=== PATIENT | female | born 1995 | race Caucasian/White ===

== ENCOUNTER 2025-04-23 20:21 | Emergency (ER) | payer BC ==
[2025-04-23 21:27] LABS: Absolute Lymphocytes (CBC) 3.3 K/uL (0.7-4.9); Hematocrit 40.1 % (36.0-45.0); Hemoglobin 13.9 g/dL (12.0-15.0); MCH 31.8 pg (27.0-35.0); MCHC 34.8 g/dL (32.0-36.0); MCV 91.4 fL (80-100); MPV 7.3 fL (7.6-11.3); Nucleated RBC Absolute Count 0.0 (0-0); Nucleated Red Blood Cells % 0.0 % (0-0); RBC Red Blood Cell Count 4.38 M/uL (3.86-4.86); White Blood Count 8.70 thou/uL (4.3-10.9)
[2025-04-23 21:34] LABS: Sqamous Epithelial <5 /HPF (None Seen); Urine Culture Reflex Order NOT NEEDED; Urine Microscopic Reflex YN ORDER UMIC
[2025-04-23 21:45] LABS: ALT/SGPT 33.0 U/L (13-56); AST/SGOT 18.0 U/L (15-37); Albumin 3.7 g/dL (3.4-5.0); Albumin/Globulin Ratio 0.9 (1.1-1.8); Alkaline Phosphatase 82.0 U/L (45-117); Anion Gap 9.0 mEq/L (5.0-15.0); BUN Blood Urea Nitrogen 16.0 mg/dL (7-18); Globulin 3.9 g/dL (2.3-3.5); Glucose Level 124.0 mg/dL (74-106); Lipase 44.0 U/L (13-75); Potassium 4.0 mEq/L (3.5-5.1)
--- NOTE | 2025-04-23 22:45 | RAD REPORT ---
EXAMINATION: CT Abdomen Pelvis W Contrast CLINICAL INDICATION: Female, 29 years old. ABD PAIN TECHNIQUE: CT abdomen and pelvis was performed, after the administration of IV contrast, as per [facility] protocol. Axial, sagittal and coronal reconstructions were obtained. One or more of the following dose reduction techniques were used: Automated exposure control, adjustment of the mA and k V according to patient size, and iterative reconstruction. Unless otherwise specified, incidental findings do not require dedicated imaging follow-up. COMPARISON: No prior exam. FINDINGS: LOWER CHEST: The visualized lung bases are clear. LIVER: Normal in size and contour. No focal lesion. BILIARY SYSTEM: No suspicious abnormalities. SPLEEN: Normal size. No focal lesion. PANCREAS: No mass, ductal dilation, or roberto-pancreatic fluid. ADRENALS: Normal; no mass. KIDNEYS: Normal size and contour. No hydronephrosis. URINARY BLADDER: Suboptimally distended limiting evaluation, without suspicious abnormalities. GASTROINTESTINAL TRACT: Stomach is moderately distended. No evidence of free air, significant intra-a bdominal free fluid, bowel obstruction or abscess. APPENDIX: Normal appendix. LYMPH NODES: No lymphadenopathy. MUSCULOSKELETAL: No acute or suspicious osseous abnormality. ADDITIONAL FINDINGS: retroverted uterus. IMPRESSION: No acute or concerning abnormalities seen in the abdomen or pelvis. Incidental findings as above.
--- NOTE | 2025-04-23 22:55 | ER ---
Nurse's Notes [facility] Name: Maye Arshad Age: 29 yrs Sex: Female : 1995 Arrival Date: 04/23/2025 Time: 20:21 Bed 5 Private MD: Diagnosis: Abdominal pain, unspecified Presentation: 04/23 20:38 Chief complaint: Patient states: LLQ pain that started Friday night, "8/10", me1 stabbing/burning with intermittent diarrhea. Was seen at urgent care on Friday and started antibiotics for UTI, taking cefdinir but isn't feeling any better. Coronavirus screen: At this time, the client does not indicate any symptoms associated with coronavirus-19. Ebola Screen: No symptoms or risks identified at this time. Initial Sepsis Screen: Does the patient meet any 2 criteria? No. Patient's initial sepsis screen is negative. Does the patient have a suspected source of infection? No. Patient's initial sepsis screen is negative. Risk Assessment: Do you want to hurt yourself or someone else? Patient reports no desire to harm self or others. Onset of symptoms was April 19, 2025. 20:38 Method Of Arrival: Ambulatory me1 20:38 Acuity: MARIBEL 3 me1 Triage Assessment: 20:43 General: Appears in no apparent distress. Behavior is calm, cooperative, appropriate me1 for age. Pain: Complains of pain in left lower quadrant Pain does not radiate. Pain currently is 8 out of 10 on a pain scale. Quality of pain is described as burning, stabbing, Pain began 2-3 days ago. Is continuous. EENT: No signs and/or symptoms were reported regarding the EENT system. Neuro: Level of Consciousness is awake, alert, obeys commands, Oriented to person, place, time, situation, Appropriate for age. Cardiovascular: Patient's skin is warm and dry. Respiratory: Airway is patent Respiratory effort is even, unlabored, Respiratory pattern is regular, symmetrical. GI: Reports lower abdominal pain, diarrhea, since friday. : No signs and/or symptoms were reported regarding the genitourinary system. Derm: Skin is intact, is healthy with good turgor, Skin is pink, warm \\T\\ dry. Musculoskeletal: No signs and/or symptoms reported regarding the musculoskeletal system. 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 - Infectious Disease History:: Denies. - Social history:: Smoking status: Patient denies any tobacco usage or history of. Screenin:00 [facility] ED Fall Risk Assessment (Adult) History of falling in the last 3 months, cp4 including since admission No falls in past 3 months (0 pts) Confusion or Disorientation No (0 pts) Intoxicated or Sedated No (0 pts) Impaired Gait No (0 pts) Mobility Assist Device Used No (0 pt) Altered Elimination No (0 pt) Score/Fall Risk Level 0 - 2 = Low Risk Oriented to surroundings, Maintained a safe environment, Assessed \\T\\ reinforced patient's understanding of fall precautions, Hourly rounding (assess needs \\T\\ fall precautionary measures) done. Abuse screen: Denies threats or abuse. Denies injuries from another. Nutritional screening: No deficits noted. Tuberculosis screening: No symptoms or risk factors identified. Never had TB. Assessment: 21:00 General: Appears in no apparent distress. uncomfortable, Behavior is calm, cooperative, cp4 appropriate for age. Pain: Complains of pain in left lower quadrant Pain does not radiate. Pain currently is 8 out of 10 on a pain scale. Neuro: Level of Consciousness is awake, alert, obeys commands, Oriented to person, place, time, situation. Cardiovascular: Patient's skin is warm and dry. Respiratory: Airway is patent Respiratory effort is even, unlabored. GI: Abdomen is round non-distended, Bowel sounds present X 4 quads. Abd is soft and non tender X 4 quads. Reports upper abdominal pain. : Reports on antibiotics for uti. EENT: No signs and/or symptoms were reported regarding the EENT system. Derm: No signs and/or symptoms reported regarding the dermatologic system. Musculoskeletal: No signs and/or symptoms reported regarding the musculoskeletal system. 23:22 Reassessment: Patient appears in no apparent distress at this time. Patient and/or jb4 family updated on plan of care and expected duration. Pain level reassessed. Patient is alert, oriented x 3, equal unlabored respirations, skin warm/dry/pink. Vital Signs: 20:38 BP 143 / 84; Pulse 78; Resp 16; Temp 98.2; Pulse Ox 100% ; Weight 90.72 kg; Height 5 me1 ft. 4 in. ; Pain 8/10; 21:39 BP 119 / 80; Pulse 70; Resp 16; Pulse Ox 96% ; cp4 22:50 BP 130 / 77; Pulse 70; Resp 16; Pulse Ox 97% ; cp4 20:38 Body Mass Index 34.33 (90.72 kg, 162.56 cm) me1 20:38 Pain Scale: Adult [facility] ED Course: 20:25 Patient arrived in ED. gm2 20:26 [facility] Green [facility]C [facility] me1 20:27 Derek Vazquez DO is Attending Physician. kb 20:41 Triage completed. me1 20:42 Arm band placed on Patient placed in waiting room. me1 21:00 Tenisha Mccollum is Primary Nurse. cp4 21:00 Bed in low position. Call light in reach. Side rails up X 1. cp4 21:00 No provider procedures requiring assistance completed. cp4 21:14 Initial lab(s) drawn, by me, sent to lab. Inserted saline lock: 22 gauge in right cp4 antecubital area, using aseptic technique. Blood collected. Flushed with 10 mL NS. 22:11 CT Abd/Pelvis - IV Contrast Only In Process Unspecified. EDMS 23:22 Provided Education on: discharge instrucitons.. jb4 23:22 IV discontinued, intact, bleeding controlled, No redness/swelling at site. Pressure jb4 dressing applied. Administered Medications: No medications were administered Medication: 21:00 VIS not applicable for this client. cp4 Outcome: 22:54 Discharge ordered by . sadnhya 23:22 Discharged to home ambulatory, jb4 23:22 Condition: stable 23:22 Discharge instructions given to patient, Instructed on discharge instructions, follow up and referral plans. Demonstrated understanding of instructions, follow-up care, 23:24 Patient left the ED. jb4 Signatures: Dispatcher [employer] EDMS Ruthie Green FNP-C FNP-Ckb Bryson, James, RN RN jb4 Miladys Dahl RN RN me1 Tenisha Mccollum 4 Joann Butler gm2 Corrections: (The following items were deleted from the chart) 20:43 20:42 Arm band placed on Patient placed in an exam room, me1 me1
--- NOTE | 2025-04-23 22:55 | EDPHYS ---
Physician Documentation [facility] Name: Maye Arshad Age: 29 yrs Sex: Female : 1995 Arrival Date: 04/23/2025 Time: 20:21 Bed 5 Private MD: ED Physician Derek Vazquez HPI: 04/23 20:27 This 29 yrs old Female presents to ER via Unassigned with complaints of LEFT SIDE ABD kb PAIN. 20:27 Pt is a 29 year old female who presents for LLQ pain that started 5 days ago. Went to Urgent care and was diagnosed with a UTI. States pain hasn't gotten any better. Started on Cefdinir 4 days ago. Denies n/v/f. Reports diarrhea. 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 - Infectious Disease History:: Denies. - Social history:: Smoking status: Patient denies any tobacco usage or history of. ROS: 20:28 Constitutional: As per HPI kb Exam: 21:56 Constitutional: This is a well developed, well nourished patient who is awake, alert, kb and in no acute distress. Head/Face: Normocephalic, atraumatic. ENT: Moist Mucous membranes Cardiovascular: Regular rate Respiratory: Respirations even and unlabored. No increased work of breathing. Talking in full sentences Skin: Warm, dry with normal turgor. Normal color. MS/ Extremity: Pulses equal, no cyanosis. Neurovascular intact. Full, normal range of motion. Neuro: Awake and alert, GCS 15, oriented to person, place, time, and situation. 21:56 Abdomen/GI: Inspection: abdomen appears normal, Bowel sounds: normal, Palpation: soft, in all quadrants, moderate abdominal tenderness, in the left lower quadrant, Vital Signs: 20:38 BP 143 / 84; Pulse 78; Resp 16; Temp 98.2; Pulse Ox 100% ; Weight 90.72 kg; Height 5 me1 ft. 4 in. ; Pain 8/10; 21:39 BP 119 / 80; Pulse 70; Resp 16; Pulse Ox 96% ; cp4 22:50 BP 130 / 77; Pulse 70; Resp 16; Pulse Ox 97% ; cp4 20:38 Body Mass Index 34.33 (90.72 kg, 162.56 cm) me1 20:38 Pain Scale: Adult me1 MDM: 20:33 Medical Screening Exam initiated kb 22:47 Data reviewed: vital signs, nurses notes. kb 22:53 Differential diagnosis: uti, pyelonephritis, kidney stone, diverticulitis, ovarian kb cyst. I considered the following discharge prescriptions or medication management in the emergency department I discussed and recommended Over The Counter medications, Antibiotics: At this time antibiotics are not recommended. Historians other than the Patient: Family Member: family. Counseling: I had a detailed discussion with the patient and/or guardian regarding the historical points, exam findings, and any diagnostic results supporting the discharge/admit diagnosis, lab results, radiology results, the need for outpatient follow up, a family practitioner, to return to the emergency department if symptoms worsen or persist or if there are any questions or concerns that arise at home. 04/23 20:29 Order name: CBC with Diff; Complete Time: 21:34 kb 04/23 20:29 Order name: CMP; Complete Time: 21:48 kb 04/23 20:29 Order name: Lipase; Complete Time: 21:48 kb 04/23 20:29 Order name: Test, Urine; Complete Time: 21:34 kb 04/23 20:29 Order name: UA Rfx Adebayo Cult if indicated; Complete Time: 21:38 kb 04/23 20:29 Order name: CT Abd/Pelvis - IV Contrast Only; Complete Time: 22:46 kb 04/23 20:29 Order name: IV Saline Lock; Complete Time: 21:02 kb 04/23 20:29 Order name: Labs collected and sent; Complete Time: 21:02 kb Administered Medications: No medications were administered Disposition: 04/24 02:13 I was immediately available on-site in the Emergency Department for consultation in the ms3 care of the patient. Disposition Summary: 04/23/25 22:54 Discharge Ordered Notes: Location: Home kb Condition: Stable kb Diagnosis - Abdominal pain, unspecified kb Followup: kb - With: Emergency Department - When: As needed - Reason: Worsening of condition Followup: kb - With: Private Physician - When: 2 - 3 days - Reason: Recheck today's complaints, Continuance of care, Re-evaluation by your physician Discharge Instructions: - Discharge Summary Sheet kb - Abdominal Pain, Adult, [id number] kb Forms: - Medication Reconciliation Form kb - Antibiotic Education kb - Prescription Opioid Use kb - Patient Portal Instructions kb - Leadership Thank You Letter kb Signatures: Dispatcher [employer] EDRuthie Rod, NELDA-C NELDA-Derek Lyon DO DO ms3 Miladys Dahl, RN RN me1
[2025-04-23 23:43] VITALS: TEMP 98.2
[2025-04-23 23:45] VITALS: BP 130/77; O2SAT 97
== END 2025-04-23 23:24 | disposition home or self-care (01) ==
LOC: ER 20:21
DX: R10.32 Left lower quadrant pain (principal)
CPT/HCPCS: 85025; 81001; 36415; 81025; 83690; 80053; 74177; 99284; Q9967